=== PATIENT | female | born 1955 | race Two or more races ===

== ENCOUNTER 2024-02-22 06:26 | Emergency (ER) | payer OTHER ==
[~2024-02-22] VITALS: Ht 157.5 cm; Wt 68.0 kg
[2024-02-22] MEDS ORDERED: LASIX20 MG PO (06:38)
[2024-02-22] MEDS ORDERED: LIPITOR20 MG PO (06:38)
[2024-02-22] MEDS ORDERED: COZAAR25 MG PO (06:38)
[2024-02-22] MEDS ORDERED: ORPHENADRINE CITRATE 30 MG/ML AMPUL IM STA (08:20)
[2024-02-22] MEDS ORDERED: KETOROLAC TROMETHAMINE 30 MG VIAL IM ONE (08:30)
[2024-02-22] MEDS ORDERED: CYCLOBENZAPRINE10 MG PO (10:02)
[2024-02-22] MEDS ORDERED: RELAFEN DS1000 MG PO (10:02)
== END 2024-02-22 10:19 | disposition home or self-care (01) ==
LOC: ER 06:27
DX: S29.8XXA Other specified injuries of thorax, initial encounter (principal); W18.39XA Other fall on same level, initial encounter; Y93.89 Activity, other specified; Y92.018 Other place in single-family (private) house as the place of occurrence of the external cause; Z88.6 Allergy status to analgesic agent